=== PATIENT | female | born 1970 | race Hispanic/Latino ===

== ENCOUNTER 2016-11-14 05:48 | Day surgery (SDC) | payer BC ==
[2016-11-14 06:58] LABS: Basophils % (Auto) 0.6 % (0.0-1.8); Hematocrit 40.3 % (30.3-42.9); Hemoglobin 13.5 gm/dl (10.1-14.3); Mean Corpuscular HGB Conc 33 % (30-34); Mean Corpuscular Hemoglobin 28 pg (28-32); Mean Corpuscular Volume 84 fl (79-97); Platelet Count 240 K/mm3 (140-440); Red Blood Count 4.82 M/mm3 (3.65-5.03); Red Cell Distribution Width 13.9 % (13.2-15.2); White Blood Count 14.3 K/mm3 (4.5-11.0)
[2016-11-14] MEDS ORDERED: NACL 0.9% 500 ML 500 ML IV SCH (07:00)
[2016-11-14 07:14] LABS: INR 1.15 (0.87-1.13)
[2016-11-14 07:15] LABS: Anion Gap 19 mmol/L; BUN/Creatinine Ratio 26.66; Blood Urea Nitrogen 16 mg/dL (7-17); Calcium 8.8 mg/dL (8.4-10.2); Carbon Dioxide 22 mmol/L (22-30); Chloride 105.1 mmol/L (98-107); Glucose 140 mg/dL (65-100); Potassium 3.7 mmol/L (3.6-5.0); Sodium 142 mmol/L (137-145)
[2016-11-14] MEDS ORDERED: HEPARIN/NS 5000 UNIT/500ML(CATH LAB) 1,000 ML IR ONE (09:33)
[2016-11-14] MEDS: SUBLIMAZE ONE ×2 (09:51→09:58)
[2016-11-14] MEDS: VERSED ONE ×2 (09:51→09:58)
[2016-11-14] MEDS: NITROGLYCERIN SYRINGE 3 ML ONE ×2 (09:51→10:01)
[2016-11-14] MEDS: HEPARIN 10,000 UNITS/10 ML ONE ×2 (09:52→10:01)
[2016-11-14] MEDS: CALAN ONE ×2 (09:52→10:01)
[2016-11-14] MEDS: XYLOCAINE 2% INFILTRATI ONE ×2 (09:52→10:00)
--- NOTE | 2016-11-14 11:12 | Cardiac Catherization Report ---
CARDIAC CATHETERIZATION REASON FOR PROCEDURE: Chest pain and strong family history of coronary artery disease. PROCEDURE: The patient was prepped and draped in a sterile fashion after informed consent. The right radial artery was entered using the Seldinger technique followed by placement of a 5-Chinese hydrophilic sheath. Routine radial cocktail was administered via the sheath. A #3.5 left Everardo was used for left coronary angiography. A #4 right Everardo was used for right coronary angiography. A pigtail catheter was used for left ventricular angiography. The catheters were removed, sheath removed, and hemostasis achieved using manual compression. The patient was returned to the postprocedure unit in stable condition. There were no complications. FINDINGS: HEMODYNAMICS: Left ventricular end-diastolic pressure was 24, following coronary angiography. Ascending aortic pressure was . There was no significant pressure gradient on pullback across the aortic valve. CORONARY ANGIOGRAPHY: The left main coronary artery was angiographically normal. The left anterior descending artery and its diagonal branches were angiographically normal. The circumflex artery and its obtuse marginal branches were angiographically normal. The right coronary artery was dominant and similarly angiographically normal. There was normal left ventricular systolic function, ejection fraction 60%. CONCLUSION: 1. Essentially, angiographically normal coronary arteries. 2. Normal left ventricular systolic function, ejection fraction 60%. RECOMMENDATION: Risk factor modification and medical therapy. JOB# [id number] YUNI/NTS
--- NOTE | 2016-11-14 11:56 | Discharge Summary ---
Short Stay Discharge Plan Activity: advance as tolerated Weight Bearing Status: Full Weight Bearing Diet: low fat, low cholesterol, low salt Wound: keep clean and dry Special Instructions: smoking cessation Follow up with: HUSSAIN LOERA JR, MD [Primary Care Provider] - 7 Days MARIANO MARTINES MD [Staff Physician] - 7 Days Forms: CardCath PCI D/C Instructions
[2016-11-14] MEDS ORDERED: NACL 0.9% 1000 ML 1,000 ML IV SCH (12:00)
[2016-11-14 12:56] VITALS: BP 117/75
== END 2016-11-14 13:10 | disposition home or self-care (01) ==
LOC: OPU 05:48
PROVIDERS: ATTEND Internal Medicine Cardiovascular Disease
DX: R07.9 Chest pain, unspecified (principal); I10 Essential (primary) hypertension; E66.01 Morbid (severe) obesity due to excess calories; Z68.41 Body mass index [BMI] 40.0-44.9, adult; Z79.82 Long term (current) use of aspirin; Z79.899 Other long term (current) drug therapy; Z82.49 Family history of ischemic heart disease and other diseases of the circulatory system
CPT/HCPCS: 36415; 80048; 85025; 85610; 85730; 93005; 93010; 93458; C1894; J1644; J2250; J3010; J7040; Q9967

== ENCOUNTER 2016-11-23 06:53 | Day surgery (SDC) | payer BC ==
[2016-11-23] MEDS ORDERED: WATER FOR IRRIG STERILE IR ONE (07:30)
[2016-11-23] MEDS ORDERED: WATER FOR IRRIG STERILE ONE (07:32)
--- NOTE | 2016-11-23 07:59 | Anesthesia Consultation ---
Anesthesia Consult and Med Hx Date of service: 11/23/16 - Airway Anesthetic Teeth Evaluation: Good ROM Head & Neck: Adequate Mental/Hyoid Distance: Adequate Mallampati Class: Class II Intubation Access Assessment: Probably Good - Pulmonary Exam CTA: Yes - Cardiac Exam Cardiac Exam: RRR - Pre-Operative Health Status ASA Pre-Surgery Classification: ASA3 Proposed Anesthetic Plan: MAC - Pulmonary Hx Smoking: No - Cardiovascular System Hx Hypertension: Yes Hx Heart Attack/AMI: No Hx Cardia Arrhythmia: Yes (palpitations) - Central Nervous System Hx Psychiatric Problems: No - Gastrointestinal Hx Gastroesophageal Reflux Disease: No - Endocrine Hx Renal Disease: No Hx Liver Disease: No Hx Non-Insulin Dependent Diabetes: No - Hematic Hx Anemia: No - Other Systems Hx Cancer: No Hx Obesity: Yes (Morbid obesity BMI 44.3) - Additional Comments Anesthesia Medical History Comments: NAC
[2016-11-23] MEDS ORDERED: NACL 0.9% 1000 ML 1,000 ML IV SCH (08:00)
--- NOTE | 2016-11-23 08:00 | Anesthesia Day of Surgery ---
Anesthesia Day of Surgery - Day of Surgery Patient Examined: Yes Patient H&P Reviewed: Yes Patient is NPO: Yes
[2016-11-23] MEDS ORDERED: DIPRIVAN 10 MG/ML IV ONE ×4 (08:04→08:36)
--- NOTE | 2016-11-23 08:59 | Post Operative Note ---
Pre-op diagnosis: screening colonoscopy Post-op diagnosis: other (multiple colon polyps, large internal/external hemorrhoids) Findings: ~1cm polyp in cecum, removed with hot snare 3 polyps in sigmoid colon, 1 removed with cold snare, 2 removed with cold biopsy forceps Large internal/external hemorrhoids Procedure: colonoscopy with polypectomy Anesthesia: MAC Surgeon: PRISCILLA BURRELL Estimated blood loss: minimal Pathology: list (Jar 1 - cecal polyp, Jar 2 - sigmoid polyps) Specimen disposition: to lab Condition: stable Disposition: same day
[2016-11-23 09:37] VITALS: BP 115/58
--- NOTE | 2016-11-23 09:43 | Operative Report ---
PROCEDURE: Colonoscopy. PREOPERATIVE DIAGNOSES: Screening colonoscopy, hematochezia. POSTOPERATIVE DIAGNOSES: Multiple colon polyp, mild diverticulosis, and large internal hemorrhoids. ANESTHESIA: Monitored anesthesia care. COMPLICATIONS: No immediate complications. ESTIMATED BLOOD LOSS: Minimal. DESCRIPTION OF PROCEDURE: After consent was obtained, the patient was placed in left lateral decubitus position. The standard Fujinon colonoscope was advanced without difficulty to the cecum. The views of mucosa were good. The quality of the prep was good. The patient tolerated the procedure well. FINDINGS: 1. There was approximately 1 cm polyp in the ascending colon, removed and retrieved with hot snare. 2. There was approximately 6 mm polyp in the sigmoid colon, removed and retrieved with cold snare. 3. There were 2 polyps in the sigmoid colon approximately 5 mm in size, removed and retrieved with cold biopsy forceps. 4. There were mild diverticulosis in the transverse colon and left side of the colon. 5. Large internal hemorrhoids were seen in retroflexion view. IMPRESSION: 1. Multiple colon polyp, removed as above. 2. Mild diverticulosis. 3. Large internal hemorrhoids. RECOMMENDATIONS: 1. Followup pathology. 2. Repeat colonoscopy in 3 years for surveillance. 3. High fiber diet daily. JOB# [id number] RAYRAY/NTS
--- NOTE | 2016-11-23 13:51 | Post Anesthesia Evaluation ---
- Post Anesthesia Evaluation Patient Participated: Yes Airway Patent: Yes Stable Respiratory Function: Yes Nausea/Vomiting: No Temp > 96.8F: Yes Pain Manageable: Yes Adequeate Hydration: Yes Anesthesia Complications: No
== END 2016-11-23 06:54 | disposition home or self-care (01) ==
LOC: GIO 06:53
PROVIDERS: ATTEND Internal Medicine Gastroenterology
DX: D12.2 Benign neoplasm of ascending colon (principal); D12.5 Benign neoplasm of sigmoid colon; K57.30 Diverticulosis of large intestine without perforation or abscess without bleeding; K64.8 Other hemorrhoids; I10 Essential (primary) hypertension; E66.01 Morbid (severe) obesity due to excess calories; Z68.41 Body mass index [BMI] 40.0-44.9, adult; Z83.71 Family history of colonic polyps; Z83.3 Family history of diabetes mellitus; Z82.49 Family history of ischemic heart disease and other diseases of the circulatory system; Z83.49 Family history of other endocrine, nutritional and metabolic diseases; Z80.1 Family history of malignant neoplasm of trachea, bronchus and lung; Z80.42 Family history of malignant neoplasm of prostate
CPT/HCPCS: 45380; 45385; 81025; 88305; J2704; J7030

== ENCOUNTER 2017-09-27 11:40 | Outpatient (CLI) | payer BC ==
[2017-09-27 12:02] LABS: Basophils # (Auto) 0.1 K/mm3 (0.0-0.1); Basophils % (Auto) 0.6 % (0.0-1.8); Eosinophils # (Auto) 0.3 K/mm3 (0.0-0.4); Eosinophils % (Auto) 1.9 % (0.0-4.3); Hemoglobin 14.7 gm/dl (10.1-14.3); Lymphocytes # (Auto) 2.2 K/mm3 (1.2-5.4); Lymphocytes % (Auto) 15.5 % (13.4-35.0); Mean Corpuscular HGB Conc 34 % (30-34); Mean Corpuscular Hemoglobin 28 pg (28-32); Mean Corpuscular Volume 84 fl (79-97); Monocytes # (Auto) 0.6 K/mm3 (0.0-0.8); Monocytes % (Auto) 4.5 % (0.0-7.3); Platelet Count 271 K/mm3 (140-440); Red Blood Count 5.23 M/mm3 (3.65-5.03); Red Cell Distribution Width 13.8 % (13.2-15.2)
[2017-09-27 12:36] LABS: Alanine Aminotransferase 12 units/L (7-56); Albumin 3.9 g/dL (3.9-5); BUN/Creatinine Ratio 17; Blood Urea Nitrogen 10 mg/dL (7-17); Calcium 8.9 mg/dL (8.4-10.2); Chol/HDL Ratio 4.63 %; HDL Cholesterol 36 mg/dL (40-59); Hemolysis Index 4; LDL Cholesterol,Direct 89 mg/dL (50-130)
== END 2017-09-27 11:41 | disposition home or self-care (01) ==
LOC: LAB 11:40
PROVIDERS: ATTEND Nurse Practitioner
DX: Z00.01 Encounter for general adult medical examination with abnormal findings (principal); I10 Essential (primary) hypertension; E78.2 Mixed hyperlipidemia; E55.9 Vitamin D deficiency, unspecified
CPT/HCPCS: 36415; 80053; 80061; 82306; 84443; 85025

== ENCOUNTER 2018-01-05 09:28 | Outpatient (CLI) | payer BC ==
--- NOTE | 2018-01-05 14:37 | Ultrasound Report ---
ULTRASOUND PELVIC COMPLETE ULTRASOUND TRANSVAGINAL HISTORY: Pelvic pain. COMPARISON: 11/12/15. TECHNIQUE: Transabdominal and transvaginal ultrasound with color doppler interrogation. FINDINGS: Uterus: Retroflexed. The uterus is mildly enlarged measuring 12.9 x 6.6 x 3.2 cm. There are at least 3 fibroids in the posterior wall measuring 2.3 cm, 3.5 cm and 1.6 cm. 2 of these appear to have a submucosal component. Multiple nabothian cysts are noted in the cervix. Endometrium: 9 mm. No focal mass or fluid collection. Right ovary: 5.3 x 2.9 x 4.6 cm. A 3.8 cm cyst is identified. Left ovary: 5.1 x 6.1 x 5.0 cm. A 4.7 cm complex cyst is identified. No pelvic fluid or mass is identified. Normal color doppler interrogation. IMPRESSION: Mild uterine fibroid disease. Bilateral ovarian cysts. Nabothian cysts in the cervix.
--- NOTE | 2018-01-05 17:18 | Ultrasound Report ---
FINAL REPORT PROCEDURE: Abdominal ultrasound. TECHNIQUE: Real-time sonography in multiple planes of the abdomen was performed with image documentation. CPT 47103 HISTORY: PERSISTENT ABDOMINAL AND PELVIC PAIN COMPARISON: No prior studies are available for comparison. FINDINGS: Image quality is limited because of the patient's obesity. The liver has diffusely increased echogenicity and is suboptimally evaluated. The findings are consistent with fatty metamorphosis. The abdominal aorta was not visualized. The pancreas was not optimally visualized. The gallbladder is adequately distended with normal wall thickness. There are no gallstones. The common hepatic duct measures 4.3 millimeters. Both kidneys appear normal in size and have normal echogenicity. There are no definite renal masses. The spleen is unremarkable. IMPRESSION: Limited study. Fatty metamorphosis of the liver.
== END 2018-01-05 09:29 | disposition home or self-care (01) ==
LOC: US 09:28
PROVIDERS: ATTEND Internal Medicine
DX: D25.0 Submucous leiomyoma of uterus (principal); N88.8 Other specified noninflammatory disorders of cervix uteri; N83.202 Unspecified ovarian cyst, left side; N83.201 Unspecified ovarian cyst, right side
CPT/HCPCS: 76700; 76830; 76856

== ENCOUNTER 2018-05-31 06:13 | Outpatient (CLI) | payer BC ==
[2018-05-31 06:45] LABS: Hemoglobin 13.6 gm/dl (10.1-14.3); Mean Corpuscular HGB Conc 34 % (30-34); Mean Corpuscular Hemoglobin 28 pg (28-32); Mean Corpuscular Volume 81 fl (79-97); Platelet Count 275 K/mm3 (140-440); Red Blood Count 4.94 M/mm3 (3.65-5.03); Red Cell Distribution Width 14.1 % (13.2-15.2)
== END 2018-05-31 06:14 | disposition home or self-care (01) ==
LOC: LAB 06:13
PROVIDERS: ATTEND Obstetrics & Gynecology
DX: N92.1 Excessive and frequent menstruation with irregular cycle (principal); I10 Essential (primary) hypertension; E66.01 Morbid (severe) obesity due to excess calories; Z88.0 Allergy status to penicillin; Z68.41 Body mass index [BMI] 40.0-44.9, adult
CPT/HCPCS: 36415; 84443; 85027

== ENCOUNTER 2018-06-28 06:13 | Outpatient (CLI) | payer BC ==
[2018-06-28 07:13] LABS: Alanine Aminotransferase 11 units/L (7-56); Bilirubin,Direct < 0.2 mg/dL (0-0.2)
== END 2018-06-28 06:14 | disposition home or self-care (01) ==
LOC: LAB 06:13
PROVIDERS: ATTEND Internal Medicine Gastroenterology
DX: K76.0 Fatty (change of) liver, not elsewhere classified (principal); I10 Essential (primary) hypertension; E66.9 Obesity, unspecified
CPT/HCPCS: 36415; 80074

== ENCOUNTER 2018-11-01 05:47 | Day surgery (SDC) | payer BC ==
[2018-11-01] MEDS ORDERED: MARCAINE 0.5% INFILTRATI ONE ×2 (06:47→09:15)
[2018-11-01] MEDS ORDERED: XYLOCAINE 1% 20 mL ONE (06:47)
[2018-11-01] MEDS ORDERED: VANCOMYCIN/NS 1 GM/250 ML 1 GM/250 ML BAG IV NR (07:14)
[2018-11-01] MEDS ORDERED: DIPRIVAN 10 MG/ML IV ONE (07:16)
[2018-11-01] MEDS ORDERED: SUBLIMAZE ONE (07:16)
[2018-11-01] MEDS ORDERED: XYLOCAINE MPF 2% ONE (07:17)
[2018-11-01] MEDS ORDERED: ZOFRAN ONE (07:17)
[2018-11-01] MEDS ORDERED: ZEMURON IV ONE ×2 (07:17→08:53)
[2018-11-01] MEDS ORDERED: DECADRON ONE (07:17)
--- NOTE | 2018-11-01 07:35 | Anesthesia Day of Surgery ---
Anesthesia Day of Surgery - Day of Surgery Patient Examined: Yes Patient H&P Reviewed: Yes Patient is NPO: Yes Lee's Test: N/A
--- NOTE | 2018-11-01 07:44 | Anesthesia Consultation ---
Anesthesia Consult and Med Hx Date of service: 11/01/18 - Airway Anesthetic Teeth Evaluation: Good ROM Head & Neck: Adequate Mental/Hyoid Distance: Adequate Mallampati Class: Class III Intubation Access Assessment: Probably Good - Pulmonary Exam CTA: Yes - Cardiac Exam Cardiac Exam: RRR - Pre-Operative Health Status ASA Pre-Surgery Classification: ASA3 Proposed Anesthetic Plan: General - Pulmonary Hx Asthma: No COPD: No Hx Pneumonia: No - Cardiovascular System Hx Hypertension: Yes (2014) Hx Cardia Arrhythmia: Yes (palpitations) - Central Nervous System Hx Psychiatric Problems: No - Gastrointestinal Hx Gastroesophageal Reflux Disease: No - Endocrine Hx End Stage Renal Disease: No Hx Liver Disease: Yes (Fatty liver) Hx Non-Insulin Dependent Diabetes: No - Other Systems Hx Alcohol Use: No Hx Substance Use: No Hx Cancer: No - Additional Comments Anesthesia Medical History Comments: s/p hysterectomy 3 months ago - minimal pain; ASA3 48y.o.f. obese, HTN/HLD, palpitations on metoprolol scheduled for robotic umbilical hernia repair.
[2018-11-01] MEDS ORDERED: VANCOMYCIN 1,750 MG in NACL 0.9% 500 ML 500 ML IV ONE (08:00)
[2018-11-01] MEDS ORDERED: VERSED IV NR (08:00)
[2018-11-01] MEDS ORDERED: NEURONTIN PO NR (08:00)
[2018-11-01] MEDS ORDERED: LACTATED RINGERS 1,000 ML IV SCH (08:00)
[2018-11-01] MEDS ORDERED: ZOFRAN IV PRN (08:00)
[2018-11-01] MEDS ORDERED: DILAUDID IV PRN (08:00)
[2018-11-01] MEDS ORDERED: SUBLIMAZE IV PRN (08:00)
[2018-11-01] MEDS ORDERED: DILAUDID ONE (09:04)
[2018-11-01] MEDS ORDERED: XYLOCAINE 1% 20 mL INFILTRATI ONE (09:16)
[2018-11-01] MEDS ORDERED: NACL 0.9% IR ONE (09:17)
[2018-11-01] MEDS ORDERED: ROBINUL ONE (09:33)
[2018-11-01] MEDS ORDERED: BLOXIVERZ ONE (09:33)
--- NOTE | 2018-11-01 09:49 | Short Stay Summary ---
Short Stay Documentation Date of service: 11/01/18 - History Principal diagnosis: umbilical hernia H&P: obtained from office - Allergies and Medications Current Medications: Allergies Penicillins Allergy (Verified 10/29/18 10:56) Rash Home Medications Medication Instructions Recorded Confirmed Last Taken Type Losartan/Hydrochlorothiazide 1 tab PO DAILY 12/18/15 11/01/18 10/29/18 09:00 History [Losartan-Hctz 50-12.5 mg Tab] Aspirin [Aspirin BABY CHEW TAB] 81 mg PO DAILY 11/14/16 11/01/18 07/06/18 History Metoprolol [Lopressor TAB] 25 mg PO BID 11/14/16 11/01/18 10/31/18 20:00 History Vitamin E 400 unit PO DAILY 07/20/18 10/29/18 Unknown History Active Medications Celecoxib (Celebrex) 200 mg PO PREOP NR Stop: 11/01/18 19:00 Last Admin: 11/01/18 07:20 Dose: 200 mg Documented by: Fentanyl (Sublimaze) 50 mcg IV Q5MIN PRN PRN Reason: Pain , Severe (7-10) Stop: 11/01/18 16:00 Gabapentin (Neurontin) 300 mg PO PREOP NR Stop: 11/01/18 19:00 Last Admin: 11/01/18 07:20 Dose: 300 mg Documented by: Hydromorphone HCl (Dilaudid) 0.5 mg IV Q10MIN PRN PRN Reason: Pain , Severe (7-10) Stop: 11/01/18 18:00 Lactated Ringer's (Lactated Ringers) 1,000 mls @ 75 mls/hr IV DIRECT LEODAN Last Admin: 11/01/18 07:20 Dose: 75 mls/hr Documented by: Midazolam HCl (Versed) 2 mg IV PREOP NR Stop: 11/01/18 23:59 Last Admin: 11/01/18 07:25 Dose: 2 mg Documented by: Ondansetron HCl (Zofran) 4 mg IV ONCE PRN PRN Reason: Nausea And Vomiting Stop: 11/01/18 18:00 - Brief post op/procedure progress note Date of procedure: 11/01/18 Pre-op diagnosis: umbilical hernia Post-op diagnosis: same Procedure: robotic assisted umbilical hernia repair with mesh Anesthesia: GETA, local Findings: small amount of incarcerated omentum in hernia, seroma Surgeon: DIO JC Estimated blood loss: minimal Pathology: none Condition: stable - Hospital course Hospital course: Pt observed in PACU and discharged to home in stable condition when criteria met - Disposition Condition at discharge: Good Disposition: DC-01 TO HOME OR SELFCARE Short Stay Discharge Plan Activity: other (no heavy lifting) Diet: low fat Wound: open to air Additional Instructions: SEE PRINTED DISCHARGE INSTRUCTIONS Follow up with: ANGLE ROLLINS MD [Primary Care Provider] - 7 Days DIO JC DO [Staff Physician] - 14 Days Prescriptions: oxyCODONE /ACETAMINOPHEN [Percocet 5/325] 1 tab PO Q4HR PRN #20 tab PRN Reason: Pain , Severe (7-10)
[2018-11-01] MEDS ORDERED: PERCOCET 5/325 ONE (10:45)
[2018-11-01] MEDS ORDERED: PERCOCET 5/325 PO PRN (11:00)
[2018-11-01 11:21] VITALS: BP 126/66
--- NOTE | 2018-11-01 17:11 | Operative Report ---
PREOPERATIVE DIAGNOSIS: Umbilical hernia. POSTOPERATIVE DIAGNOSIS: Umbilical hernia. PROCEDURE: Robotic-assisted umbilical hernia repair with mesh. ANESTHESIA: General endotracheal anesthesia, local. FINDINGS: Small amount of incarcerated omentum and hernia, seroma. SUPERVISOR EPOXY FABRICATION: Mary Landin DO ESTIMATED BLOOD LOSS: Minimal. PATHOLOGY: None. CONDITION: Stable to PACU. HISTORY OF PRESENT ILLNESS AND INDICATION: The patient is a 48-year-old female who had a recent robotic-assisted hysterectomy and primary repair of umbilical hernia. The hysterectomy was performed by Dr. Peguero and the primary umbilical hernia was performed by Dr. Landin, myself. At that time, the hernia was repaired primarily because of increased risk with placement of mesh. At that time, I had discussed the high rate of recurrence with the patient, but she was willing to accept that risk and wanted to proceed with primary repair. The patient presented back to the office with concerns that the hernia did recur. Upon examination, there was a small, partially reducible umbilical hernia without tenderness or skin changes. Repair was recommended. I discussed all risks, benefits, alternatives to surgery with the patient. We discussed the robotic, laparoscopic and open approach. All questions were answered and consent obtained. PROCEDURE IN DETAIL: The patient was identified in the preoperative area, taken back to the operating room, placed on the operating table in supine position. After anesthesia was induced, the bilateral arms were tucked with all bony prominences padded and the abdomen was prepped and draped in the usual sterile fashion and a time-out performed. A left upper quadrant jose incision was made using an 11 blade at Laura's point. Veress needle was inserted through this incision and the position was confirmed using the saline drop test. The abdomen was insufflated to 15 mmHg. After the abdomen was insufflated, the Veress needle was removed and the incision slightly elongated. A 5 mm Optiview trocar was placed in this incision. The abdomen was inspected. There was no underlying injury to any of the abdominal structures. There were adhesions from the omentum to the anterior abdominal wall at the site of the prior umbilical hernia repair. The umbilical hernia was visible. At this point, an additional 12 mm left lateral abdominal trocar and an 8 mm left lower quadrant trocar were placed under direct visualization. A 5 mm trocar was removed. An 8 mm robotic trocar was placed through this incision. Robot was then docked. A Raymond SutureCut, needle transport driver was placed in arm #1 and a fenestrated bipolar grasper in arm #2. The camera was inserted and both instruments were advanced under direct visualization. The surgeon was then transferred to the console. The omental adhesions to the anterior abdominal wall were taken down using blunt dissection. A seroma was evacuated from the prior umbilical hernia repair. This was serous fluid. The hernia measured approximately 2 cm. Therefore, it was decided to fix the hernia with an [address] mesh. The mesh along with suture material was placed into the abdomen. The tabs were cut off the mesh prior to insertion. The hernia defect was first primarily closed using a 0 V-Loc suture, then the mesh was placed at the center of the hernia defect and sutured into place circumferentially using a 2-0 V-Loc suture. The mesh was seen to lay flat and had adequate coverage over the hernia defect. The coated side of the mesh was facing the bowel. The robot was then undocked and the surgeon scrubbed back in. Both sutures were then removed laparoscopically under direct visualization. The 12 mm port was then removed and the fascia closed with interrupted 0 Vicryl sutures using the Florentino-Simon device. The 8 mm ports were then removed under direct visualization and the skin incisions closed with 4-0 Monocryl subcuticular stitches and skin glue. All incisions were once again infiltrated with local anesthetic. At the end of the case, all sponge, instrument, sharp counts were correct x 2. The patient was awoken from anesthesia, extubated, and taken to PACU in stable condition. JOB# [id number] JACKELINE/REYES
== END 2018-11-01 05:48 | disposition home or self-care (01) ==
LOC: OR 05:47
PROVIDERS: ATTEND Surgery
DX: K42.0 Umbilical hernia with obstruction, without gangrene (principal); E78.00 Pure hypercholesterolemia, unspecified; I10 Essential (primary) hypertension; Z98.891 History of uterine scar from previous surgery; Z80.8 Family history of malignant neoplasm of other organs or systems; Z88.0 Allergy status to penicillin; Z79.899 Other long term (current) drug therapy; Z79.82 Long term (current) use of aspirin; Z90.710 Acquired absence of both cervix and uterus; Z98.890 Other specified postprocedural states; Z83.3 Family history of diabetes mellitus; Z82.49 Family history of ischemic heart disease and other diseases of the circulatory system
CPT/HCPCS: 36415; 49653; 84132; A4217; C1781; J1100; J1170; J2250; J2405; J2704; J2710; J3010; J3370; J7040; J7120; S2900

== ENCOUNTER 2019-04-02 06:08 | Outpatient (CLI) | payer BC ==
[2019-04-02 06:53] LABS: Albumin 3.8 g/dL (3.9-5)
[2019-04-02 07:31] LABS: Bilirubin,Direct 0.2 mg/dL (0-0.2)
== END 2019-04-02 06:09 | disposition home or self-care (01) ==
LOC: LAB 06:08
PROVIDERS: ATTEND Internal Medicine Gastroenterology
DX: K76.0 Fatty (change of) liver, not elsewhere classified (principal); E66.9 Obesity, unspecified; E78.00 Pure hypercholesterolemia, unspecified; I10 Essential (primary) hypertension; Z86.010 Personal history of colon polyps; Z90.710 Acquired absence of both cervix and uterus
CPT/HCPCS: 36415; 80076

== ENCOUNTER 2020-02-19 11:07 | Outpatient (CLI) | payer BC ==
--- NOTE | 2020-02-19 12:53 | Mammography Report ---
BILATERAL DIGITAL SCREENING MAMMOGRAM WITH CAD HISTORY: Screening mammogram. TECHNIQUE: Routine digital mammographic imaging performed. This examination was interpreted with alecia early benefit of Computer-aided Detection analysis. COMPARISON: 07/04/2017, 09/25/2013, 09/19/2012. FINDINGS: Breast Density: scattered fibroglandular appearance of the breast tissue. Digital CC and MLO views demonstrate no mammographic evidence of malignancy. IMPRESSION: No mammographic evidence of malignancy. If the clinical examination remains stable, recommend bilate ral mammogram in approximately one year. BIRADS 1: Negative. FURTHER INFORMATION: According to the [employer], yearly mammograms are recommend ed starting at age 40 and continuing as long as a woman is in good health. Clinical Breast Exams shou ld be part of a periodic health exam-about every 3 years for women in their 20s and 30s and every yea r for women 40 and over. Breast self exam is an option for women starting in their 20s. Any breast ch wayne noted on a breast self exam should be reported promptly to the patient's healthcare provider. Br east MRI is recommended for women with an approximately 20-25% or greater lifetime risk of breast can cer, including women with a strong family history of breast or ovarian cancer and women who have been treated for Hodgkin's disease. A negative Mammography report should not discourage follow up or biopsy of a clinically significant f inding and/or abnormality. Dense breast tissue may obscure small neoplasms. The patient will be entered into a reminder system with a target due date for the next screening mamm ogram. Signer Name: Sanjay Mccarthy MD Signed: 02/19/2020 12:49 PM Workstation Name: [id number]
== END 2020-02-19 11:08 | disposition home or self-care (01) ==
LOC: MAMMO 11:07
PROVIDERS: ATTEND Internal Medicine
DX: Z12.31 Encounter for screening mammogram for malignant neoplasm of breast (principal)
CPT/HCPCS: 77067

== ENCOUNTER 2020-05-05 06:59 | Day surgery (SDC) | payer BC ==
[~2020-05-05 06:59] MED LIST: WATER FOR IRRIG STERILE 1,000 ML BOTTLE ONE; WATER FOR IRRIG STERILE 250 ML BOTTLE IR ONE
[2020-05-05] MEDS ORDERED: SODIUM CHLORIDE 0.9% 1000 ML 1,000 ML IV SCH (07:30)
--- NOTE | 2020-05-05 08:02 | Anesthesia Consultation ---
Anesthesia Consult and Med Hx Date of service: 05/05/20 - Airway Anesthetic Teeth Evaluation: Good ROM Head & Neck: Adequate Mental/Hyoid Distance: Adequate Mallampati Class: Class II Intubation Access Assessment: Probably Good - Pulmonary Exam CTA: Yes - Pre-Operative Health Status ASA Pre-Surgery Classification: ASA3 Proposed Anesthetic Plan: MAC - Pulmonary Hx Smoking: No Hx Asthma: No COPD: No Hx Pneumonia: No Hx Sleep Apnea: No - Cardiovascular System Hx Hypertension: Yes (2014) Hx Heart Attack/AMI: No Hx Angina: No Hx Cardia Arrhythmia: Yes (Hx. of Premature Ventricular Contractions) Hx Internal Defibrillator: No - Central Nervous System Hx Neuromuscular Disorder: No Hx Seizures: No Hx Psychiatric Problems: No - Gastrointestinal Hx Gastroesophageal Reflux Disease: No - Endocrine Hx Renal Disease: No Hx Liver Disease: Yes (Fatty liver) Hx Insulin Dependent Diabetes: No Hx Non-Insulin Dependent Diabetes: No - Other Systems Hx Alcohol Use: No Hx Substance Use: No Hx Cancer: No Hx Obesity: Yes (BMI 42.7kg) - Additional Comments Anesthesia Medical History Comments: Cardiac clearance obtained . Patient denied previous anesthesia complications
--- NOTE | 2020-05-05 08:07 | Anesthesia Day of Surgery ---
Anesthesia Day of Surgery - Day of Surgery Patient Examined: Yes Patient H&P Reviewed: Yes Patient is NPO: Yes Beta Blockers: No Cardiac Clearance: Yes Pulmonary Clearance: No Lee's Test: N/A
--- NOTE | 2020-05-05 08:17 | Short Stay Summary ---
Short Stay Documentation Date of service: 05/05/20 Narrative H&P: The patient presents for surveillance colonoscopy; history of multiple adenomatous polyps on index colonoscopy 3 years ago and due for surveillance. no new gi complaints/symptoms - History Past Medical History: other Past Surgical History: No surgical history Social history: no significant social history - Allergies and Medications Current Medications: Allergies Penicillins Allergy (Verified 10/29/18 10:56) Rash Home Medications Medication Instructions Recorded Confirmed Last Taken Type Losartan/Hydrochlorothiazide 1 tab PO DAILY 12/18/15 11/01/18 05/04/20 History [Losartan-Hctz 50-12.5 mg Tab] Aspirin [Aspirin BABY CHEW TAB] 81 mg PO DAILY 11/14/16 11/01/18 04/21/20 History Metoprolol [Lopressor TAB] 25 mg PO BID 11/14/16 11/01/18 05/04/20 History Vitamin E 400 unit PO DAILY 07/20/18 10/29/18 04/21/20 History oxyCODONE /ACETAMINOPHEN [Percocet 1 tab PO Q4HR PRN #20 tab 11/01/18 Unknown Rx 5/325] Active Medications Sodium Chloride (Nacl 0.9% 1000 Ml) 1,000 mls @ 50 mls/hr IV DIRECT LEODAN - Physical exam General appearance: no acute distress, obese Heart: Regular rate, Normal S1, Normal S2 Gastrointestinal: normal - Brief post op/procedure progress note Date of procedure: 05/05/20 Pre-op diagnosis: surveillance colonoscopy Post-op diagnosis: other (diverticulosis) Procedure: Colonoscopy Anesthesia: MAC Findings: 1. Mild diverticulosis 2. Internal hemorrhoids Surgeon: PRISCILLA BURRELL Estimated blood loss: none Pathology: none - Disposition Condition at discharge: Good Disposition: DC-01 TO HOME OR SELFCARE Short Stay Discharge Plan Follow up with: ANGLE ROLLINS MD [Primary Care Provider] - 7 Days
[2020-05-05] MEDS ORDERED: propofoL 200 MG/20 ML VIAL IV ONE ×2 (08:18→08:19)
[2020-05-05] MEDS ORDERED: LIDOCAINE MPF (2%) 20 MG/1 ML VIAL 5 ML ONE (08:18)
--- NOTE | 2020-05-05 08:38 | Operative Report ---
Operative Report Operative Report: Colonoscopy Procedure Note Date of procedure: 05/05/2020 Endoscopist: Prashant Palma Pre-op diagnosis/indication: Surveillance colonoscopy for personal history of colon polyps Post-op diagnosis: Diverticulosis, internal hemorrhoids MEDICATIONS: MAC COMPLICATIONS: No immediate complications ESTIMATED BLOOD LOSS: None DESCRIPTION OF PROCEDURE: After consent was obtained, the patient was placed in the left lateral decubitis position. The olympus colonoscope was inserted into the rectum and advanced to the cecum without difficulty. The patient tolerated the procedure well. The views of the mucosa were good. The quality of prep was good. The patients vital signs were monitored continuously throughout the procedure. FINDINGS: There were a few, small scattered diverticula in the colon. Internal hemorrhoids were visualized on retroflexion view. Otherwise, the colon appeared normal. IMPRESSION: 1. Mild diverticulosis 2. Internal hemorrhoids RECOMMENDATIONS: -high fiber diet daily -repeat colonoscopy in 5 years for surveillance for personal history of colon polyps
--- NOTE | 2020-05-05 09:04 | Post Anesthesia Evaluation ---
- Post Anesthesia Evaluation Patient Participated: Yes Airway Patent: Yes Stable Respiratory Function: Yes Nausea/Vomiting: No Temp > 96.8F: Yes Pain Manageable: Yes Adequeate Hydration: Yes Anesthesia Complications: No Block Receding Appropriately: Not Applicable Patient on Ventilator: No
[2020-05-05 10:03] VITALS: BP 129/74
== END 2020-05-05 07:00 | disposition home or self-care (01) ==
LOC: GIO 06:59
PROVIDERS: ATTEND Internal Medicine Gastroenterology
DX: Z12.11 Encounter for screening for malignant neoplasm of colon (principal); K57.30 Diverticulosis of large intestine without perforation or abscess without bleeding; K64.8 Other hemorrhoids; E78.00 Pure hypercholesterolemia, unspecified; I10 Essential (primary) hypertension; E66.9 Obesity, unspecified; Z98.891 History of uterine scar from previous surgery; Z83.3 Family history of diabetes mellitus; Z88.0 Allergy status to penicillin; Z79.82 Long term (current) use of aspirin; Z79.899 Other long term (current) drug therapy; Z90.710 Acquired absence of both cervix and uterus; Z98.890 Other specified postprocedural states; Z68.41 Body mass index [BMI] 40.0-44.9, adult; Z80.8 Family history of malignant neoplasm of other organs or systems; Z82.49 Family history of ischemic heart disease and other diseases of the circulatory system
CPT/HCPCS: 45378; J2704; J7030

== ENCOUNTER 2021-04-28 15:03 | Outpatient (CLI) | payer BC ==
[2021-04-28 15:49] LABS: Basophils # (Auto) 0.1 K/mm3 (0.0-0.1); Eosinophils # (Auto) 0.1 K/mm3 (0.0-0.4); Hematocrit 43.4 % (30.3-42.9); Hemoglobin 14.8 gm/dl (10.1-14.3); Lymphocytes # (Auto) 2.1 K/mm3 (1.2-5.4); Lymphocytes % (Auto) 18.5 % (13.4-35.0); Mean Corpuscular HGB Conc 34 % (30-34); Mean Corpuscular Volume 88 fl (79-97); Monocytes # (Auto) 0.6 K/mm3 (0.0-0.8); Monocytes % (Auto) 5.1 % (0.0-7.3); Platelet Count 252 K/mm3 (140-440); Red Blood Count 4.93 M/mm3 (3.65-5.03); Red Cell Distribution Width 13.3 % (13.2-15.2)
[2021-04-28 15:56] LABS: Alanine Aminotransferase 11 units/L (7-56); Albumin 3.8 g/dL (3.9-5); Blood Urea Nitrogen 11 mg/dL (7-17); Calcium 9.2 mg/dL (8.4-10.2); Chol/HDL Ratio 4.02 %; HDL Cholesterol 35 mg/dL (40-59); Hemolysis Index 19; LDL Cholesterol,Direct 99 mg/dL (50-130)
[2021-04-28 15:58] LABS: BUN/Creatinine Ratio 18
== END 2021-04-28 15:04 | disposition home or self-care (01) ==
LOC: LAB 15:03
PROVIDERS: ATTEND Internal Medicine
DX: Z00.00 Encounter for general adult medical examination without abnormal findings (principal); Z13.29 Encounter for screening for other suspected endocrine disorder; Z13.1 Encounter for screening for diabetes mellitus; Z13.220 Encounter for screening for lipoid disorders; E55.9 Vitamin D deficiency, unspecified
CPT/HCPCS: 36415; 80053; 80061; 82306; 83036; 84443; 85025

== ENCOUNTER 2021-05-07 12:27 | Outpatient (CLI) | payer BC ==
--- NOTE | 2021-05-07 14:51 | XRay Report ---
CHEST 2 VIEWS INDICATION / CLINICAL INFORMATION: COUGH. COMPARISON: None available. FINDINGS: SUPPORT DEVICES: None. HEART / MEDIASTINUM: No significant abnormality. LUNGS / PLEURA: No significant pulmonary or pleural abnormality. No pneumothorax. ADDITIONAL FINDINGS: No significant additional findings. IMPRESSION: 1. No acute findings. Signer Name: Willy Hubbard MD Signed: 05/07/2021 2:47 PM Workstation Name: [id number]
== END 2021-05-07 12:28 | disposition home or self-care (01) ==
LOC: XRAY 12:27
PROVIDERS: ATTEND Internal Medicine
DX: R05 Cough (principal)
CPT/HCPCS: 71046

== ENCOUNTER 2021-05-12 10:52 | Outpatient (CLI) | payer BC ==
--- NOTE | 2021-05-13 08:46 | Mammography Report ---
DIGITAL SCREENING MAMMOGRAM WITH CAD, 05/12/2021 CLINICAL INFORMATION / INDICATION: Routine screening mammography. SCREENING MAMMO TECHNIQUE: Digital bilateral 2D mammography was obtained in the craniocaudal and mediolateral obliqu e projections. This examination was interpreted with the benefit of Computer-Aided Detection analysis . COMPARISON: 03/20/2020, 07/04/2017, 09/25/2013 FINDINGS: Breast Density: There are scattered areas of fibroglandular density. No dominant mass, suspicious calcifications, or architectural distortion in either breast. IMPRESSION: No mammographic evidence of malignancy. Follow up recommendation: Routine yearly BI-RADS Category 1: Negative. A "normal" or negative report should not discourage follow up or biopsy of a clinically significant f inding. A written summary of these findings will be mailed to the patient. The patient will be entered into a mammography reporting system which will generate a reminder letter for the patient's next appointmen t at the appropriate interval. The [employer] recommends yearly mammograms starting at age 40 and continuing as l hugh as a woman is in good health. Breast MRI is recommended for women with an approximate 20-25% or greater lifetime risk of breast cancer, including women with a strong family history of breast or ova saranya cancer or who have been treated for Hodgkin's disease. Signer Name: Christian Levy DO Signed: 05/13/2021 8:42 AM Workstation Name: [id number]
== END 2021-05-12 10:53 | disposition home or self-care (01) ==
LOC: SPVWC 10:52
PROVIDERS: ATTEND Internal Medicine
DX: Z12.31 Encounter for screening mammogram for malignant neoplasm of breast (principal)
CPT/HCPCS: 77067

== ENCOUNTER 2021-06-30 11:52 | Outpatient (CLI) | payer BC | END 2021-06-30 11:53 | disposition home or self-care (01) | LOC: LAB 11:52 | PROVIDERS: ATTEND Internal Medicine | DX: D72.829 Elevated white blood cell count, unspecified (principal) | CPT/HCPCS: 36415 ==

== ENCOUNTER 2021-08-06 09:13 | Outpatient (CLI) | payer BC ==
[2021-08-06 09:59] LABS: Chol/HDL Ratio 4.25 %
== END 2021-08-06 09:14 | disposition home or self-care (01) ==
LOC: LAB 09:13
PROVIDERS: ATTEND Internal Medicine
DX: E78.5 Hyperlipidemia, unspecified (principal); R73.03 Prediabetes
CPT/HCPCS: 36415; 80061; 83036

== ENCOUNTER 2021-11-30 12:11 | Outpatient (CLI) | payer BC ==
--- NOTE | 2021-11-30 14:10 | XRay Report ---
CHEST 2 VIEWS INDICATION / CLINICAL INFORMATION: M54.9 DORSALGIA,UNSPECIFIED. COMPARISON: 05/07/2021 FINDINGS: SUPPORT DEVICES: None. HEART / MEDIASTINUM: No significant abnormality. LUNGS / PLEURA: No significant pulmonary or pleural abnormality. No pneumothorax. ADDITIONAL FINDINGS: No significant additional findings. IMPRESSION: 1. No acute findings. Signer Name: Willy Hubbard MD Signed: 11/30/2021 2:03 PM Workstation Name: [id number]
== END 2021-11-30 12:12 | disposition home or self-care (01) ==
LOC: XRAY 12:11
PROVIDERS: ATTEND Internal Medicine
DX: M54.9 Dorsalgia, unspecified (principal)
CPT/HCPCS: 71046

== ENCOUNTER 2021-12-08 12:23 | Outpatient (CLI) | payer BC ==
--- NOTE | 2021-12-08 15:04 | Ultrasound Report ---
US abdomen limited INDICATION: R19.01 RIGHT UPPER QUADRANT ABDOMINAL SWELLING,MASS AND LUMP COMPARISON: None. FINDINGS: Pancreas: No significant abnormality identified in the visualized portions of the pancreas. Abdominal aorta: No significant abnormality. IVC: Normal. Liver: Increased echogenicity. Gallbladder: No gallstones, gallbladder wall thickening, or pericholecystic fluid. Bile ducts: The common bile duct measures 4 mm. Right Kidney: No significant abnormality. Additional findings: No significant additional findings. IMPRESSION: Findings most consistent with diffuse hepatic steatosis. Otherwise, no significant sonographic abnorm ality. Signer Name: Bob Schultz MD Signed: 12/08/2021 2:59 PM Workstation Name: [email or web address]
== END 2021-12-08 12:24 | disposition home or self-care (01) ==
LOC: US 12:23
PROVIDERS: ATTEND Internal Medicine
DX: R19.01 Right upper quadrant abdominal swelling, mass and lump (principal)
CPT/HCPCS: 76705

== ENCOUNTER 2022-04-21 13:33 | Outpatient (CLI) | payer BC | END 2022-04-21 13:34 | disposition home or self-care (01) | LOC: LAB 13:33 | PROVIDERS: ATTEND Nurse Practitioner | DX: D72.829 Elevated white blood cell count, unspecified (principal) | CPT/HCPCS: 36415 ==

== ENCOUNTER 2022-05-31 10:05 | Outpatient (CLI) | payer BC ==
--- NOTE | 2022-06-02 14:25 | Mammography Report ---
DIGITAL SCREENING MAMMOGRAM WITH TOMOSYNTHESIS WITH CAD, 05/31/2022 CLINICAL INFORMATION / INDICATION: Routine Screening Mammography. SCREENING MAMMO. TECHNIQUE: Digital bilateral 2D and 3D mammography with tomosynthesis was obtained in the craniocauda l and mediolateral oblique projections. Computer-Aided Detection (CAD) analysis was used for interpr etation of this study. COMPARISON: 09/25/2013 through 05/12/2021. FINDINGS: Breast Density: There are scattered areas of fibroglandular density. No dominant mass, suspicious calcifications, or architectural distortion in either breast. Benign-appearing nodularity bilaterally is again identified. IMPRESSION: No mammographic evidence of malignancy. Follow up recommendation: Routine yearly screening mammogram. BI-RADS Category 2: BENIGN. A "normal" or negative report should not discourage follow up or biopsy of a clinically significant f inding. A written summary of these findings will be mailed to the patient. The patient will be entered into a mammography reporting system which will generate a reminder letter for the patient's next appointmen t at the appropriate interval. The [employer] recommends yearly mammograms starting at age 40 and continuing as l hugh as a woman is in good health. Breast MRI is recommended for women with an approximate 20-25% or greater lifetime risk of breast cancer, including women with a strong family history of breast or ova saranya cancer or who have been treated for Hodgkin's disease. Signer Name: Jonny Leslie MD Signed: 06/02/2022 2:21 PM Workstation Name: [email or web address]
== END 2022-05-31 10:06 | disposition home or self-care (01) ==
LOC: SPVWC 10:05
PROVIDERS: ATTEND Obstetrics & Gynecology
DX: Z12.31 Encounter for screening mammogram for malignant neoplasm of breast (principal)
CPT/HCPCS: 77063; 77067